=== PATIENT | female | born 1970 | race Caucasian/White ===

== ENCOUNTER → 2016-11-06 | Outpatient (CLI) | payer OTHER ==
--- NOTE | 2016-11-06 12:33 | DX ---
Right knee series 5 views. History: Pain following trauma. Slipped on ice twisting right knee. Findings: Osseous structures are intact without fracture. The knee joint space is normal. No osteophy nadege are seen at the knee joint. No intra-articular calcifications are evident. There is a small effus ion in the suprapatella bursa. Tiny marginal osteophytes are present at the patellofemoral joint. On the merchant view obtained there is no subluxation of the patella. Tiny lateral osteophytes are noted at the patellofemoral joint. Impression: 1. No acute osseous abnormality seen right knee. 2. Mild hypertrophic osteophytes at the patellofemoral joint.
== END ==
LOC: BMCIMAGING 11:44
PROVIDERS: ATTEND Family Medicine
DX: M25.561 Pain in right knee (principal); W00.0XXA Fall on same level due to ice and snow, initial encounter; M25.761 Osteophyte, right knee